=== PATIENT | female | born 1985 | race Caucasian/White ===

== ENCOUNTER 2019-08-02 10:22 | Outpatient (RCR) | payer OTHER ==
[2019-08-04 10:07] VITALS: BP 99/70
--- NOTE | 2019-08-04 10:07 | Cardiology Stress Test Report ---
Stress Test Report Date of Procedure/Referring: Date of Procedure: Aug 02, 2019 PCP Trevin David MD Admitting Physician No,Local Physician Baseline Heart Rate: 87 Baseline Blood Pressure: Blood Pressure Systolic: 99 Blood Pressure Diastolic: 70 Baseline EKG: Baseline EKG: normal sinus rhythm Summary/Conclusion: Summary: In summary, the patient started exercising with a baseline heart rate, blood pressure and EKG mentioned above Patient was able to exercise for a total of 3 minutes on Parminder protocol, 4.6 METs Maximum heart rate 167 Maximum blood pressure 143/74 Stress EKG Minimal nondiagnostic changes Recovery EKG Return to baseline Conclusion: 1. Fair exercise tolerance for a total of 3 minutes on Parminder protocol, 4.6 METs, achieving 90 percent of maximum expected heart rate 2. Minimal nondiagnostic EKG changes with exercise returned to baseline during recovery 3. No arrhythmia was noted TREVIN DAVID MD Aug 04, 2019 10:07
[2019-09-15] MEDS ORDERED: RANI150T90 PO (11:27)
[2019-09-15] MEDS ORDERED: METO-387 PO (11:27)
== END 2019-10-31 | disposition home or self-care (01) ==
LOC: CARD 10:22
PROVIDERS: ATTEND Internal Medicine Cardiovascular Disease
DX: R00.2 Palpitations (principal); R42 Dizziness and giddiness; R06.02 Shortness of breath; E66.01 Morbid (severe) obesity due to excess calories; Z72.0 Tobacco use
CPT/HCPCS: 93017; 93270; 93306

== ENCOUNTER → 2019-09-08 | Outpatient (CLI) | payer OTHER ==
[~2019-09-08] MED LIST: NS IV 1000 ML 0 ML ONE
== END ==
LOC: CARD 10:18
PROVIDERS: ATTEND Internal Medicine Cardiovascular Disease
DX: I51.89 Other ill-defined heart diseases (principal); R42 Dizziness and giddiness; R55 Syncope and collapse; Z72.0 Tobacco use

== ENCOUNTER 2021-06-27 12:19 | Emergency (ER) | payer SELFPAY ==
[~2021-06-27] VITALS: Ht 162 cm; Wt 113.0 kg
[~2021-06-27 12:19] MED LIST changes: +MTP25TSR PO; -NS IV 1000 ML 0 ML ONE; +RANI150T90 PO
[2021-06-27 12:25] VITALS: BP 115/73
--- NOTE | 2021-06-27 12:30 | ED Cough/URI ---
General Chief Complaint: Respiratory Problems Stated Complaint: LOW O2; COVID+ Source: patient Exam Limitations: no limitations History of Present Illness Date Seen by Provider: Jun 27, 2021 Time Seen by Provider: 12:30 Initial Comments 35-year-old female presents with cough, chest congestion, headache and nasal congestion for 1 day. Diagnosed with COVID-19 this morning and was using a pulse oximeter at home and noted to have a high pulse rate of 160s with a normal oxygen saturation of 98%. She called her PCPs office and spoke to her nurse advised to come to the ER. She complains of mild shortness of air, no chest pain Patient lived with her mother who of Covid less than 1 month ago. She denies any significant past medical history, but is a daily smoker Allergies and Home Medications Home Medications Ivermectin 3 Mg Tablet, 18 MG PO DAILY PRN Prescribed by: PRECIOUS OLMEDO on 06/27/21 1246 Patient Home Medication List Home Medication List Reviewed: Yes Review of Systems Review of Systems Constitutional: No fever; malaise; No weakness EENTM: No ear pain, No hoarseness, No throat pain, No throat swelling Respiratory: cough; No short of breath Cardiovascular: No chest pain, No edema, No palpitations Gastrointestinal: No abdominal pain, No constipation, No diarrhea, No nausea, No vomiting Musculoskeletal: No back pain, No joint pain Skin: No change in color, No rash Psychiatric/Neurological: Denies Numbness, Denies Paresthesia Past Qhcjjmi-Pubgap-Yzsjkp Hx Patient Social History Tobacco Use?: Yes Physical Exam Vital Signs - First Documented 06/27/21 12:25 Temp 35.5 Pulse 112 Resp 20 B/P (MAP) 115/73 (87) Pulse Ox 99 O2 Delivery Room Air Capillary Refill : Height: '" Weight: lbs. oz. kg; BMI Method: General Appearance: WD/WN, no apparent distress HEENT: PERRL/EOMI, normal ENT inspection Neck: non-tender, supple Respiratory: chest non-tender, lungs clear, normal breath sounds, no respiratory distress, no accessory muscle use Cardiovascular: no JVD Gastrointestinal: non tender, soft Extremities: normal range of motion, no pedal edema Neurologic/Psychiatric: no motor/sensory deficits, alert Skin: normal color, warm/dry Progress/Results/Core Measures Suspected Sepsis SIRS Temperature: Pulse: Respiratory Rate: Blood Pressure / Mean: Results/Orders My Orders Orders - PRECIOUS OLMEDO DO Chest 1 View Ap/Pa Only (06/27/21 12:30) Vital Signs/I&O 06/27/21 12:25 Temp 35.5 Pulse 112 Resp 20 B/P (MAP) 115/73 (87) Pulse Ox 99 O2 Delivery Room Air Capillary Refill : Progress Note : Progress Note without treatment/ intervention patient's HR decreased to less than 100 and Oxygen sats were 98%. No distress. Discussed outpt treatment and follow up if not improving or worse. Diagnostic Imaging Diagonstic Imaging: Xray Plain Films/CT/US/NM/MRI: chest Comments Date of Exam:06/27/21 CHEST 1 VIEW AP/PA ONLY INDICATION: cough,+ C-19. TECHNIQUE: Single view chest 12:34 PM. CORRELATION STUDY: None FINDINGS: The heart size, mediastinal configuration and pulmonary vascularity are within normal limits. No consolidating infiltrate within the lung hughes. There is suggestion very small area of nodularity with linear density adjacent to this area of the left lung base. IMPRESSION: 1. No consolidating infiltrate to suggests pneumonia. 2. Abnormal nodular and linear density left lung base. Could reflect granuloma and/or scarring. However, particularly given no priors for comparison, short-term follow-up repeat two-view chest imaging recommended for reassessment. Report was faxed to [facility]/RN Infection Control by walter at 12:58PM. Dictated on workstation # [id number] Dict: 06/27/21 1253 Trans: 06/27/21 1258 WALTER [id number] Interpreted by: MANUELA ADAMS DO Electronically signed by: Departure Impression Primary Impression: COVID-19 Disposition: 01 HOME, SELF-CARE Condition: Stable Departure-Patient Inst. Decision time for Depature: 13:16 Patient Instructions: COVID-19 (DC) Add. Discharge Instructions: Follow up with your PCP (Dr Salgado) in 1 week for any further questions. Take the following vitamins as recommended (see hand out) Vitamin D, C, Zinc, Melatonin and aspirin for at least 2 weeks. Talk to your doctor about wether or not to continue the aspirin after 2 weeks, but continue taking the vitamins Return to the ER for any persistent difficulty breathing or low oxygen saturations All discharge instructions reviewed with patient and/or family. Voiced understanding. Scripts Ivermectin (Ivermectin) 3 Mg Tablet 18 MG PO DAILY PRN for 5 Days, #30 TAB Prov: PRECIOUS OLMEDO DO 06/27/21 PRECIOUS OLMEDO DO Jun 27, 2021 12:30
[2021-06-27] MEDS ORDERED: IVER3TAB2 PO (12:46)
--- NOTE | 2021-06-27 12:58 | Diagnostic Imaging Report ---
INDICATION: cough,+ C-19. TECHNIQUE: Single view chest 12:34 PM. CORRELATION STUDY: None FINDINGS: The heart size, mediastinal configuration and pulmonary vascularity are within normal limits. No consolidating infiltrate within the lung hughes. There is suggestion very small area of nodularity with linear density adjacent to this area of the left lung base. IMPRESSION: 1. No consolidating infiltrate to suggests pneumonia. 2. Abnormal nodular and linear density left lung base. Could reflect granuloma and/or scarring. However, particularly given no priors for comparison, short-term follow-up repeat two-view chest imaging recommended for reassessment. Report was faxed to [facility]/RN Infection Control by walter at 12:58PM. Dictated by: Dictated on workstation # [id number]
== END 2021-06-27 13:19 | disposition home or self-care (01) ==
LOC: ER FS 12:25 → MERGE 12:25 → ER FS 13:19
DX: U07.1 COVID-19 (principal)
CPT/HCPCS: 71045